=== PATIENT | male | born 1960 | race Two or more races ===

== ENCOUNTER → 2016-08-30 | Emergency (ER) | payer SELFPAY ==
[~2016-08-30] VITALS: Ht 182.9 cm; Wt 81.6 kg
[~2016-08-30] MED LIST: Morphine Sulfate 2mg/ml Inj IVP ONE; Piperacillin/Tazobactam 4.5 GM in NS 110 ML IV SCH; Vancomycin 1.5gm/D5W 300ml 325 ML IVPB ONE
[2016-08-30 12:04] VITALS: BP 130/79
[2016-08-30 13:10] VITALS: BP 130/79
--- NOTE | 2016-08-30 13:29 | Diagnostic Imaging Report ---
Indication: Chest Pain Comparison: None A single view chest radiograph was obtained. Findings: No definite infiltrate or pulmonary vascular congestion identified. The heart is enlarged. The aorta is mildly enlarged consistent with atherosclerotic vascular disease. The bones are osteopenic. Impression: No acute disease
--- NOTE | 2016-09-02 12:48 | Cardiology Report ---
APPROVED REPORT EKG Measurement Heart [id number] 130P-12 [id number] Normal sinus rhythm Normal ECG
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
== END | disposition home or self-care (01) ==
LOC: EDUNIT# 11:15 → EDBD 11:20 → EMR 11:42 → CANBEDREQ 13:48
DX: F10.120 Alcohol abuse with intoxication, uncomplicated (principal); M54.5 Low back pain; Z89.211 Acquired absence of right upper limb below elbow; V89.2XXS Person injured in unspecified motor-vehicle accident, traffic, sequela; L03.319 Cellulitis of trunk, unspecified
CPT/HCPCS: 71010; 82962; 93005; 99283